=== PATIENT | female | born 1995 | race Caucasian/White ===

== ENCOUNTER 2019-03-20 02:54 | Inpatient (IN) ==
[2019-03-20] MEDS ORDERED: OXYTOCIN 30 UNITS/500 ML BAG IV PRN ×2 (08:17→11:02)
--- NOTE | 2019-03-20 08:28 | History & Physical Report ---
Date of Service March 20, 2019 Assessment & Plan (1) Normal labor: IUP at 40+ weeks with regular contractions & intact membranes BP's elevated today, but no PIH symptoms will check PIH labs see admission orders anticipate vaginal History of Present Illness Primary Care Provider: Devang Peña Patient is a 23 yo white female EDC 03/16/19 who presents with regular contractions since yesterday. She has now made cervical change. GBS negative. has been uncomplicated. Allergies Allergy/AdvReac Type Severity Reaction Status Date / Time nickel Allergy Mild Rash Verified 03/20/19 03:16 Home Medications Home Medications Medication Instructions Recorded Confirmed Type 1 tab PO DAILY 01/24/19 03/20/19 History vitamin,calcium,dlusefbf-zkyr-petcj acid tablet psyllium 1 tab PO DAILY 01/24/19 03/20/19 History Patient History Social History Preferred Language: Citizen Of [place] [employer] Required: No Beliefs That Will Affect Care: None marital status: Single Current Living Situation: Significant Other Other Information That Helps Us Care for You: No Feels Safe at Home: Yes Safety Concerns: Feels Safe At This Time Smoking Status: Former smoker Hx Alcohol Use: No Hx Substance Use: No Review of Systems All systems reviewed & are unremarkable except as noted in HPI & below Physical Exam Constitutional: WD/WN, vitals as above Respiratory: normal respiratory effort, lungs clear to auscultation Cardiovascular: RRR, no murmur, no edema Gastrointestinal (Abdomen): normal bowel sounds, soft, nontender, no hepatosplenomegaly Psychiatric: A+Ox3, euthymic affect Genitourinary: OB Exam Abdomen: + vertex Manual OB Exam: + cervical dilation 4 cm, + cervical effacement 100%, + station -2 and + amniotic fluid (intact) OB Exam Monitor Tracing: + external FHT monitor used, + external uterine monitor used, + category I and + normal FHT variability Results & Data Vital Signs (Past 12 Hours) Vital Signs Temp Pulse Resp BP 03/20/19 07:13 90 146/84 H 03/20/19 07:04 98.4 F 96 H 20 140/91 03/20/19 05:32 99.1 F 86 139/78 03/20/19 03:40 93 H 147/82 H 03/20/19 03:29 86 145/78 H 03/20/19 03:17 98.1 F 18 03/20/19 03:11 93 H 139/86 Code Status & VTE Plan VTE Prophylaxis Plan VTE Prophylaxis will be ordered: No
[2019-03-20] MEDS: LACTATED RINGER'S 1,000 ML IV PRN ×4 (08:47→21:26)
[2019-03-20 08:56] LABS: Hematocrit (blood only) 37.1 % (37-47); Hemoglobin 12.3 g/dL (12.0-16.0); Mean Corpuscular Hemoglobin 28.3 pg (25-34); Mean Corpuscular Hgb Conc 33.2 g/dL (32-36); Mean Corpuscular Volume 85.3 fL (80-100); Mean Platelet Volume 10.9 fL (7.4-10.4); Platelet Count 298 K/uL (130-400); RDW Coefficient of Variation 15.4 % (11.5-14.5); Red Blood Count 4.35 M/uL (4.2-5.4); White Blood Count 16.47 K/uL (4.8-10.8)
[2019-03-20 09:21] LABS: Alanine Aminotransferase 34 U/L (12-78); Albumin Level 2.8 gm/dl (3.4-5.0); Aspartate Aminotransferase 25 U/L (15-37); BUN Creatinine Ratio 11.9 (10-20); Bilirubin Direct < 0.1 mg/dl (0-0.2); Blood Urea Nitrogen 8 mg/dl (7-18); Calcium 9.2 mg/dl (8.5-10.1); Carbon Dioxide 22 mmol/L (21-32); Chloride 104 mmol/L (98-107); Creatinine Clr Calc Pharmacy 189.6 ml/min; Creatinine Clr Calc Pharmacy 192.6 ml/min; Est GFR (African American) 145.8; Est GFR (African American) 146.5; Est GFR (Non-African American) 125.8; Est GFR (Non-African American) 126.4; Glucose 86 mg/dl (70-99); Potassium 3.8 mmol/L (3.5-5.1); Sodium 136 mmol/L (136-145)
[2019-03-20 09:22] LABS: Albumin Globulin Ratio 0.7 (0.9-2); Alkaline Phosphatase 250 U/L (45-117); Bilirubin,Total 0.4 mg/dl (0.2-1); Globulin 4.2 gm/dl (2.5-4.0)
--- NOTE | 2019-03-20 11:06 | Obstetrical Progress Note ---
Date of Service March 20, 2019 Subjective Preeclampsia labs normal. Patient comfortable. Irreg ctx. SVE 4/80/-2. FHT Cat 1, [place] irreg Will start pitocin. Patient agreeable. OK for epidural when she desires. Results & Data Vital Signs (Past 12 Hours) Vital Signs Temp Pulse Resp BP 03/20/19 10:53 94 H 144/97 H 03/20/19 10:52 37.1 C 20 03/20/19 07:13 90 146/84 H 03/20/19 07:04 36.9 C 96 H 20 140/91 03/20/19 05:32 37.3 C 86 139/78 03/20/19 03:40 93 H 147/82 H 03/20/19 03:29 86 145/78 H 03/20/19 03:17 36.7 C 18 03/20/19 03:11 93 H 139/86 PG Care Time/CCT Total # of Minutes Spent Total Time Spent with Patient: Total time spent is greater than 50% in coordination of care (as documented) at patient's floor/unit and/or counseling patient:
[2019-03-20] MEDS ORDERED: BUPIVACAINE 0.25% 30 ML VIAL ONE ×2 (12:45→17:04)
[2019-03-20] MEDS ORDERED: ePHEDrine sulfate 50 MG/ML AMP ONE (12:45)
[2019-03-20] MEDS ORDERED: fentaNYL 2MCG/ML ROPIV 1.25MG/ML 100 ML BAG EPI ONE (12:46)
[2019-03-20] MEDS ORDERED: fentaNYL citrate 100 MCG/2 ML VIAL ONE ×2 (12:46→17:04)
--- NOTE | 2019-03-20 13:05 | Anesthesiology Consultation ---
Date of Service March 20, 2019 Assessment & Plan Chart Review Chart Review: Patient NOT seen in Pre Admission Testing and Acceptable Risk for Labor Epidural Consults Requested none ASA ASA2 Proposed Anesthesia Anesthesia Type: Labor Epidural and CSE Risk / Benefits Reviewed With: PT / POA / Parent / Guardian, Accepts Plan and Informed Consent Obtained History Height/Weight Height: 5 ft 6 in Weight: 130.635 kg Allergies Allergy/AdvReac Type Severity Reaction Status Date / Time nickel Allergy Mild Rash Verified 03/20/19 03:16 Medications Home Medications Medication Instructions Recorded Confirmed Last Taken 1 tab PO DAILY 01/24/19 03/20/19 03/20/19 vitamin,calcium,oolkxrgw-txad-lxiqh acid tablet psyllium 1 tab PO DAILY 01/24/19 03/20/19 03/20/19 Active Medications Generic Name Dose Route Start Last Admin Trade Name Freq PRN Reason Stop Dose Admin Lactated Ringer's 1,000 mls @ 125 mls/hr 03/20/19 08:17 03/20/19 13:01 Lr IV 03/22/19 08:16 125 mls/hr .Q8H PRN Infusion L&D Protocol Protocol Oxytocin 30 units in 500 mls @ 5 mls/hr 03/20/19 11:02 03/20/19 12:33 Pitocin IV 03/22/19 11:01 0.3 units/hr .Q24H PRN 5 mls/hr Labor Induction/Augmentation Titration Protocol 0.3 UNITS/HR NPO Date Last Intake of Fluids: 03/20/19 Time Last Intake of Fluids: 12:00 Date Last Intake of Solids: 03/19/19 Time Last Intake of Solids: 20:00 Past Medical History Medical History H/O urinary tract infection Exercise / Class Metabolic Activity II 4-5 Yardwork/Stairs/Walk up hill Past Family History Family History Grandmother (Maternal) Hypertension Other Breast cancer Past Surgical History Surgical History H/O oral surgery Status post cholecystectomy Past Anesthesia History No Hx of Anesthesia Complications and No Family Hx of Anesthesia Complications History of PONV No Hx of PONV and No Hx of Motion Sickness Social History Smoking Status: Former smoker Hx Alcohol Use: No Hx Substance Use: No substance use type: does not use Review of Systems no chest pain or sob Physical Exam Vital Signs Last Vital Signs Temp 37.0 C 03/20/19 12:54 Pulse 92 H 03/20/19 13:03 Resp 20 03/20/19 12:54 BP 145/72 H 03/20/19 12:53 Pulse Ox 98 03/20/19 13:03 ENMT Mouth: no TMJ abnormality Thyromental Distance: > or= 3.5 Finger Breadths Mallampati Class: II Neck normal visual inspection Respiratory normal respiratory effort Auscultation: lungs clear to auscultation bilaterally Cardiovascular Rate/Rhythm: regular rate and regular rhythm Musculoskeletal Spine: normal cervical ROM Neurologic moves all extremities Psychiatric Orientation: alert and oriented x 3 Testing Laboratory Results 03/20/19 08:34 03/20/19 08:34
[2019-03-20] MEDS ORDERED: ePHEDrine sulfate 50 MG/ML AMP IV PRN (13:25)
[2019-03-20] MEDS ORDERED: NALOXONE HCL 1 MG in SODIUM CHLORIDE 0.9% 1000ML 1,000 ML IV PRN (13:25)
[2019-03-20] MEDS ORDERED: DiphenhydrAMINE HCL 50 MG/ML VIAL IV PRN (13:25)
[2019-03-20] MEDS ORDERED: NALBUPHINE HCL INJ 10 MG/ML AMP IV PRN (13:25)
[2019-03-20] MEDS ORDERED: NALOXONE HCL 0.4 MG/1 ML VIAL/CARP IV PRN (13:25)
[2019-03-20] MEDS ORDERED: ONDANSETRON INJ 2 MG/ML 2 ML VIAL IV PRN (13:25)
[2019-03-20] MEDS: fentaNYL 2MCG/ML ROPIV 1.25MG/ML 100 ML BAG EPI PRN ×3 (17:01→19:20)
--- NOTE | 2019-03-20 20:12 | Obstetrical Progress Note ---
Date of Service March 20, 2019 Subjective Comfortable with epidural. SVE 7/100/0. FHT Cat 1 [place] Q 2 Results & Data Vital Signs (Past 12 Hours) Vital Signs Temp Pulse Resp BP Pulse Ox 03/20/19 20:08 91 H 99 03/20/19 20:07 83 141/77 H 03/20/19 20:03 93 H 99 03/20/19 19:58 91 H 99 03/20/19 19:53 92 H 99 03/20/19 19:52 95 H 143/77 H 03/20/19 19:48 86 98 03/20/19 19:43 89 99 03/20/19 19:38 89 99 03/20/19 19:37 93 H 132/74 03/20/19 19:33 94 H 99 03/20/19 19:30 20 03/20/19 19:28 86 99 03/20/19 19:23 91 H 140/75 99 03/20/19 19:18 97 H 100 03/20/19 19:15 37.5 C 03/20/19 19:13 106 H 100 03/20/19 19:08 92 H 143/77 H 99 03/20/19 19:03 94 H 99 03/20/19 19:00 20 03/20/19 18:58 89 99 03/20/19 18:53 102 H 99 03/20/19 18:52 95 H 145/75 H 03/20/19 18:48 83 99 03/20/19 18:43 84 99 03/20/19 18:38 89 99 03/20/19 18:37 91 H 142/82 H 03/20/19 18:33 92 H 99 03/20/19 18:28 92 H 99 03/20/19 18:23 101 H 99 03/20/19 18:22 103 H 133/83 03/20/19 18:18 104 H 100 03/20/19 18:16 106 H 91 03/20/19 18:15 37.0 C 03/20/19 18:13 99 H 99 03/20/19 18:08 98 H 99 03/20/19 18:07 98 H 130/71 03/20/19 18:03 90 99 03/20/19 18:00 20 03/20/19 17:58 97 H 99 03/20/19 17:53 92 H 128/68 99 03/20/19 17:48 96 H 100 03/20/19 17:43 110 H 100 03/20/19 17:40 90 153/85 H 03/20/19 17:38 99 H 100 03/20/19 17:37 97 H 160/95 H 03/20/19 17:33 95 H 100 03/20/19 17:30 20 03/20/19 17:28 93 H 100 03/20/19 17:25 37.7 C H 03/20/19 17:23 95 H 99 03/20/19 17:22 96 H 156/82 H 03/20/19 17:21 92 H 165/86 H 03/20/19 17:18 88 99 03/20/19 17:13 97 H 99 03/20/19 17:08 88 98 03/20/19 17:07 94 H 165/85 H 03/20/19 17:03 96 H 99 03/20/19 17:00 37.3 C 20 03/20/19 16:58 90 161/88 H 99 03/20/19 16:53 96 H 98 03/20/19 16:52 90 167/90 H 03/20/19 16:48 92 H 98 03/20/19 16:46 20 03/20/19 16:43 93 H 98 03/20/19 16:38 89 145/76 H 100 03/20/19 16:33 89 99 03/20/19 16:30 18 03/20/19 16:28 86 100 03/20/19 16:23 92 H 100 03/20/19 16:22 86 132/78 03/20/19 16:18 89 99 03/20/19 16:13 87 100 03/20/19 16:08 96 H 99 03/20/19 16:07 78 138/83 03/20/19 16:03 93 H 100 03/20/19 16:00 20 03/20/19 15:58 92 H 99 03/20/19 15:53 88 100 03/20/19 15:52 85 138/83 03/20/19 15:48 94 H 100 03/20/19 15:43 91 H 100 03/20/19 15:38 86 100 03/20/19 15:37 90 137/77 03/20/19 15:33 90 100 09/23/19 15:30 20 03/20/19 15:28 91 H 99 03/20/19 15:23 85 99 03/20/19 15:22 80 121/68 03/20/19 15:18 86 99 03/20/19 15:13 83 99 03/20/19 15:08 85 99 03/20/19 15:07 77 118/63 03/20/19 15:03 78 100 03/20/19 15:00 36.9 C 20 03/20/19 14:58 89 100 03/20/19 14:57 93 H 145/76 H 03/20/19 14:53 76 99 03/20/19 14:48 85 98 03/20/19 14:43 84 98 03/20/19 14:38 78 99 03/20/19 14:37 71 142/77 H 03/20/19 14:33 70 98 03/20/19 14:28 87 98 03/20/19 14:23 71 128/68 99 03/20/19 14:18 72 98 03/20/19 14:13 69 98 03/20/19 14:08 72 133/74 99 03/20/19 14:03 71 98 03/20/19 13:58 77 97 03/20/19 13:53 74 133/77 97 03/20/19 13:48 85 97 03/20/19 13:43 73 97 03/20/19 13:38 75 97 03/20/19 13:36 76 136/74 03/20/19 13:33 77 135/79 97 03/20/19 13:31 76 131/66 03/20/19 13:28 84 99 03/20/19 13:27 81 136/73 03/20/19 13:24 86 133/72 03/20/19 13:23 92 H 98 03/20/19 13:22 77 131/62 03/20/19 13:18 85 98 03/20/19 13:15 90 123/71 03/20/19 13:14 84 86 L 03/20/19 13:13 86 99 03/20/19 13:08 100 H 100 03/20/19 13:03 92 H 98 03/20/19 12:58 89 100 03/20/19 12:54 37.0 C 20 03/20/19 12:53 80 145/72 H 98 03/20/19 12:44 80 139/76 03/20/19 12:34 85 171/96 H 03/20/19 11:20 79 144/88 H 03/20/19 10:53 94 H 144/97 H 03/20/19 10:52 37.1 C 20 PG Care Time/CCT Total # of Minutes Spent Total Time Spent with Patient: Total time spent is greater than 50% in coordination of care (as documented) at patient's floor/unit and/or counseling patient:
[2019-03-20] MEDS ORDERED: LABETALOL HCL IV 5 MG/ML 20ML IV STA (22:02)
--- NOTE | 2019-03-21 00:28 | Obstetrical Progress Note ---
Date of Service March 21, 2019 Subjective Comfortable with epidural. FHT cat 1, early decels [place] Q 2 SVE 8/100/+1 Results & Data Vital Signs (Past 12 Hours) Vital Signs Temp Pulse Resp BP Pulse Ox 03/21/19 00:23 106 H 96 03/21/19 00:18 108 H 96 03/21/19 00:16 109 H 146/89 H 03/21/19 00:13 109 H 97 03/21/19 00:08 108 H 97 03/21/19 00:03 114 H 98 03/21/19 00:01 111 H 138/91 03/20/19 23:58 110 H 99 03/20/19 23:55 106 H 139/80 03/20/19 23:53 113 H 97 03/20/19 23:50 112 H 146/90 H 03/20/19 23:48 111 H 96 03/20/19 23:46 117 H 139/85 03/20/19 23:43 109 H 96 03/20/19 23:40 108 H 143/82 H 03/20/19 23:38 108 H 96 03/20/19 23:36 108 H 139/81 03/20/19 23:33 108 H 96 03/20/19 23:30 108 H 145/84 H 03/20/19 23:28 110 H 96 03/20/19 23:25 107 H 142/84 H 03/20/19 23:23 108 H 96 03/20/19 23:21 109 H 140/86 03/20/19 23:18 108 H 96 03/20/19 23:16 106 H 141/87 H 03/20/19 23:13 106 H 97 03/20/19 23:11 106 H 147/88 H 03/20/19 23:08 107 H 97 03/20/19 23:06 107 H 160/89 H 03/20/19 23:03 104 H 97 03/20/19 23:01 105 H 157/86 H 03/20/19 23:00 37.5 C 18 03/20/19 22:58 107 H 97 03/20/19 22:55 109 H 159/85 H 03/20/19 22:53 105 H 97 03/20/19 22:50 108 H 159/90 H 03/20/19 22:48 108 H 97 03/20/19 22:46 104 H 162/86 H 03/20/19 22:43 108 H 97 03/20/19 22:41 107 H 148/87 H 03/20/19 22:38 110 H 97 03/20/19 22:36 110 H 135/73 03/20/19 22:33 108 H 151/89 H 97 03/20/19 22:30 20 03/20/19 22:28 99 H 146/86 H 97 03/20/19 22:23 105 H 97 03/20/19 22:21 108 H 156/96 H 03/20/19 22:18 106 H 98 03/20/19 22:13 110 H 98 03/20/19 22:08 107 H 99 03/20/19 22:07 107 H 153/96 H 03/20/19 22:03 108 H 100 03/20/19 22:00 18 03/20/19 21:58 114 H 99 03/20/19 21:53 104 H 99 03/20/19 21:52 107 H 163/99 H 03/20/19 21:48 103 H 100 03/20/19 21:43 108 H 100 03/20/19 21:38 110 H 100 03/20/19 21:37 100 H 145/93 H 03/20/19 21:33 113 H 100 03/20/19 21:30 20 03/20/19 21:28 111 H 100 03/20/19 21:23 99 H 100 03/20/19 21:22 107 H 157/97 H 03/20/19 21:18 106 H 100 03/20/19 21:13 114 H 159/94 H 98 03/20/19 21:08 96 H 99 03/20/19 21:07 100 H 165/95 H 03/20/19 21:03 98 H 99 03/20/19 21:00 18 03/20/19 20:58 95 H 99 03/20/19 20:53 100 H 99 03/20/19 20:52 98 H 147/92 H 03/20/19 20:48 97 H 100 03/20/19 20:43 101 H 100 03/20/19 20:38 95 H 100 03/20/19 20:37 101 H 141/91 H 03/20/19 20:33 98 H 100 03/20/19 20:30 18 03/20/19 20:28 98 H 100 03/20/19 20:23 98 H 100 03/20/19 20:22 109 H 146/88 H 03/20/19 20:18 100 H 100 03/20/19 20:15 37.4 C 20 03/20/19 20:13 113 H 100 03/20/19 20:12 93 H 84 L 03/20/19 20:08 91 H 99 03/20/19 20:07 83 141/77 H 03/20/19 20:03 93 H 99 03/20/19 20:00 20 03/20/19 19:58 91 H 99 03/20/19 19:53 92 H 99 03/20/19 19:52 95 H 143/77 H 03/20/19 19:48 86 98 03/20/19 19:43 89 99 03/20/19 19:38 89 99 03/20/19 19:37 93 H 132/74 03/20/19 19:33 94 H 99 03/20/19 19:30 20 03/20/19 19:28 86 99 03/20/19 19:23 91 H 140/75 99 03/20/19 19:18 97 H 100 03/20/19 19:15 37.5 C 03/20/19 19:13 106 H 100 03/20/19 19:08 92 H 143/77 H 99 03/20/19 19:03 94 H 99 03/20/19 19:00 20 03/20/19 18:58 89 99 03/20/19 18:53 102 H 99 03/20/19 18:52 95 H 145/75 H 03/20/19 18:48 83 99 03/20/19 18:43 84 99 03/20/19 18:38 89 99 03/20/19 18:37 91 H 142/82 H 03/20/19 18:33 92 H 99 03/20/19 18:28 92 H 99 03/20/19 18:23 101 H 99 03/20/19 18:22 103 H 133/83 03/20/19 18:18 104 H 100 03/20/19 18:16 106 H 91 03/20/19 18:15 37.0 C 03/20/19 18:13 99 H 99 03/20/19 18:08 98 H 99 03/20/19 18:07 98 H 130/71 03/20/19 18:03 90 99 03/20/19 18:00 20 03/20/19 17:58 97 H 99 03/20/19 17:53 92 H 128/68 99 03/20/19 17:48 96 H 100 03/20/19 17:43 110 H 100 03/20/19 17:40 90 153/85 H 03/20/19 17:38 99 H 100 03/20/19 17:37 97 H 160/95 H 03/20/19 17:33 95 H 100 03/20/19 17:30 20 03/20/19 17:28 93 H 100 03/20/19 17:25 37.7 C H 03/20/19 17:23 95 H 99 03/20/19 17:22 96 H 156/82 H 03/20/19 17:21 92 H 165/86 H 03/20/19 17:18 88 99 03/20/19 17:13 97 H 99 03/20/19 17:08 88 98 03/20/19 17:07 94 H 165/85 H 03/20/19 17:03 96 H 99 03/20/19 17:00 37.3 C 20 03/20/19 16:58 90 161/88 H 99 03/20/19 16:53 96 H 98 03/20/19 16:52 90 167/90 H 03/20/19 16:48 92 H 98 03/20/19 16:46 20 03/20/19 16:43 93 H 98 03/20/19 16:38 89 145/76 H 100 03/20/19 16:33 89 99 03/20/19 16:30 18 03/20/19 16:28 86 100 03/20/19 16:23 92 H 100 03/20/19 16:22 86 132/78 03/20/19 16:18 89 99 03/20/19 16:13 87 100 03/20/19 16:08 96 H 99 03/20/19 16:07 78 138/83 03/20/19 16:03 93 H 100 03/20/19 16:00 20 03/20/19 15:58 92 H 99 03/20/19 15:53 88 100 03/20/19 15:52 85 138/83 03/20/19 15:48 94 H 100 03/20/19 15:43 91 H 100 03/20/19 15:38 86 100 03/20/19 15:37 90 137/77 03/20/19 15:33 90 100 03/20/19 15:30 20 03/20/19 15:28 91 H 99 03/20/19 15:23 85 99 03/20/19 15:22 80 121/68 03/20/19 15:18 86 99 03/20/19 15:13 83 99 03/20/19 15:08 85 99 03/20/19 15:07 77 118/63 03/20/19 15:03 78 100 03/20/19 15:00 36.9 C 20 03/20/19 14:58 89 100 03/20/19 14:57 93 H 145/76 H 03/20/19 14:53 76 99 03/20/19 14:48 85 98 03/20/19 14:43 84 98 03/20/19 14:38 78 99 03/20/19 14:37 71 142/77 H 03/20/19 14:33 70 98 03/20/19 14:28 87 98 03/20/19 14:23 71 128/68 99 03/20/19 14:18 72 98 03/20/19 14:13 69 98 03/20/19 14:08 72 133/74 99 03/20/19 14:03 71 98 03/20/19 13:58 77 97 03/20/19 13:53 74 133/77 97 03/20/19 13:48 85 97 03/20/19 13:43 73 97 03/20/19 13:38 75 97 03/20/19 13:36 76 136/74 03/20/19 13:33 77 135/79 97 03/20/19 13:31 76 131/66 03/20/19 13:28 84 99 03/20/19 13:27 81 136/73 03/20/19 13:24 86 133/72 03/20/19 13:23 92 H 98 03/20/19 13:22 77 131/62 03/20/19 13:18 85 98 03/20/19 13:15 90 123/71 03/20/19 13:14 84 86 L 03/20/19 13:13 86 99 03/20/19 13:08 100 H 100 03/20/19 13:03 92 H 98 03/20/19 12:58 89 100 03/20/19 12:54 37.0 C 20 03/20/19 12:53 80 145/72 H 98 03/20/19 12:44 80 139/76 03/20/19 12:34 85 171/96 H PG Care Time/CCT Total # of Minutes Spent Total Time Spent with Patient: Total time spent is greater than 50% in coordination of care (as documented) at patient's floor/unit and/or counseling patient:
[2019-03-21] MEDS: fentaNYL 2MCG/ML ROPIV 1.25MG/ML 100 ML BAG EPI PRN (01:02)
--- NOTE | 2019-03-21 01:59 | Obstetrical Progress Note ---
Date of Service March 21, 2019 Subjective Comfortable. FHT Cat 1 with early decels [employer] Q 2 SVE 10/100/+2 to +3 (caput, but skull is 2+) Will begin to push. Results & Data Vital Signs (Past 12 Hours) Vital Signs Temp Pulse Resp BP Pulse Ox 03/21/19 01:53 108 H 18 98 03/21/19 01:48 95 H 97 03/21/19 01:47 98 H 128/66 03/21/19 01:43 95 H 97 03/21/19 01:38 96 H 97 03/21/19 01:33 96 H 97 03/21/19 01:31 98 H 124/68 03/21/19 01:28 98 H 97 03/21/19 01:23 96 H 96 03/21/19 01:18 99 H 97 03/21/19 01:16 100 H 128/73 03/21/19 01:13 98 H 97 03/21/19 01:08 105 H 98 03/21/19 01:03 115 H 97 03/21/19 01:01 114 H 139/87 03/21/19 00:59 37.5 C 18 03/21/19 00:58 109 H 97 03/21/19 00:53 112 H 97 03/21/19 00:51 109 H 138/91 03/21/19 00:48 109 H 97 03/21/19 00:43 109 H 97 03/21/19 00:38 109 H 96 03/21/19 00:33 113 H 98 03/21/19 00:31 112 H 141/87 H 03/21/19 00:30 18 03/21/19 00:28 107 H 97 03/21/19 00:23 106 H 96 03/21/19 00:18 108 H 96 03/21/19 00:16 109 H 146/89 H 03/21/19 00:13 109 H 97 03/21/19 00:08 108 H 97 03/21/19 00:03 114 H 98 03/21/19 00:01 111 H 18 138/91 03/20/19 23:58 110 H 99 03/20/19 23:55 106 H 139/80 03/20/19 23:53 113 H 97 03/20/19 23:50 112 H 146/90 H 03/20/19 23:48 111 H 96 03/20/19 23:46 117 H 139/85 03/20/19 23:43 109 H 96 03/20/19 23:40 108 H 143/82 H 03/20/19 23:38 108 H 96 03/20/19 23:36 108 H 139/81 03/20/19 23:33 108 H 96 03/20/19 23:30 108 H 145/84 H 03/20/19 23:28 110 H 96 03/20/19 23:25 107 H 142/84 H 03/20/19 23:23 108 H 96 03/20/19 23:21 109 H 140/86 03/20/19 23:18 108 H 96 03/20/19 23:16 106 H 141/87 H 03/20/19 23:13 106 H 97 03/20/19 23:11 106 H 147/88 H 03/20/19 23:08 107 H 97 03/20/19 23:06 107 H 160/89 H 03/20/19 23:03 104 H 97 03/20/19 23:01 105 H 157/86 H 03/20/19 23:00 37.5 C 18 03/20/19 22:58 107 H 97 03/20/19 22:55 109 H 159/85 H 03/20/19 22:53 105 H 97 03/20/19 22:50 108 H 159/90 H 03/20/19 22:48 108 H 97 03/20/19 22:46 104 H 162/86 H 03/20/19 22:43 108 H 97 03/20/19 22:41 107 H 148/87 H 03/20/19 22:38 110 H 97 03/20/19 22:36 110 H 135/73 03/20/19 22:33 108 H 151/89 H 97 03/20/19 22:30 20 03/20/19 22:28 99 H 146/86 H 97 03/20/19 22:23 105 H 97 03/20/19 22:21 108 H 156/96 H 03/20/19 22:18 106 H 98 03/20/19 22:13 110 H 98 03/20/19 22:08 107 H 99 03/20/19 22:07 107 H 153/96 H 03/20/19 22:03 108 H 100 03/20/19 22:00 18 03/20/19 21:58 114 H 99 03/20/19 21:53 104 H 99 03/20/19 21:52 107 H 163/99 H 03/20/19 21:48 103 H 100 03/20/19 21:43 108 H 100 03/20/19 21:38 110 H 100 03/20/19 21:37 100 H 145/93 H 03/20/19 21:33 113 H 100 03/20/19 21:30 20 03/20/19 21:28 111 H 100 03/20/19 21:23 99 H 100 03/20/19 21:22 107 H 157/97 H 03/20/19 21:18 106 H 100 03/20/19 21:13 114 H 159/94 H 98 03/20/19 21:08 96 H 99 03/20/19 21:07 100 H 165/95 H 03/20/19 21:03 98 H 99 03/20/19 21:00 18 03/20/19 20:58 95 H 99 03/20/19 20:53 100 H 99 03/20/19 20:52 98 H 147/92 H 03/20/19 20:48 97 H 100 03/20/19 20:43 101 H 100 03/20/19 20:38 95 H 100 03/20/19 20:37 101 H 141/91 H 03/20/19 20:33 98 H 100 03/20/19 20:30 18 03/20/19 20:28 98 H 100 03/20/19 20:23 98 H 100 03/20/19 20:22 109 H 146/88 H 03/20/19 20:18 100 H 100 03/20/19 20:15 37.4 C 20 03/20/19 20:13 113 H 100 03/20/19 20:12 93 H 84 L 03/20/19 20:08 91 H 99 03/20/19 20:07 83 141/77 H 03/20/19 20:03 93 H 99 03/20/19 20:00 20 03/20/19 19:58 91 H 99 03/20/19 19:53 92 H 99 03/20/19 19:52 95 H 143/77 H 03/20/19 19:48 86 98 03/20/19 19:43 89 99 03/20/19 19:38 89 99 03/20/19 19:37 93 H 132/74 03/20/19 19:33 94 H 99 03/20/19 19:30 20 03/20/19 19:28 86 99 03/20/19 19:23 91 H 140/75 99 03/20/19 19:18 97 H 100 03/20/19 19:15 37.5 C 03/20/19 19:13 106 H 100 03/20/19 19:08 92 H 143/77 H 99 03/20/19 19:03 94 H 99 03/20/19 19:00 20 03/20/19 18:58 89 99 03/20/19 18:53 102 H 99 03/20/19 18:52 95 H 145/75 H 03/20/19 18:48 83 99 03/20/19 18:43 84 99 03/20/19 18:38 89 99 03/20/19 18:37 91 H 142/82 H 03/20/19 18:33 92 H 99 03/20/19 18:28 92 H 99 03/20/19 18:23 101 H 99 03/20/19 18:22 103 H 133/83 03/20/19 18:18 104 H 100 03/20/19 18:16 106 H 91 03/20/19 18:15 37.0 C 03/20/19 18:13 99 H 99 03/20/19 18:08 98 H 99 03/20/19 18:07 98 H 130/71 03/20/19 18:03 90 99 03/20/19 18:00 20 03/20/19 17:58 97 H 99 03/20/19 17:53 92 H 128/68 99 03/20/19 17:48 96 H 100 03/20/19 17:43 110 H 100 03/20/19 17:40 90 153/85 H 03/20/19 17:38 99 H 100 03/20/19 17:37 97 H 160/95 H 03/20/19 17:33 95 H 100 03/20/19 17:30 20 03/20/19 17:28 93 H 100 03/20/19 17:25 37.7 C H 03/20/19 17:23 95 H 99 03/20/19 17:22 96 H 156/82 H 03/20/19 17:21 92 H 165/86 H 03/20/19 17:18 88 99 03/20/19 17:13 97 H 99 03/20/19 17:08 88 98 03/20/19 17:07 94 H 165/85 H 03/20/19 17:03 96 H 99 03/20/19 17:00 37.3 C 20 03/20/19 16:58 90 161/88 H 99 03/20/19 16:53 96 H 98 03/20/19 16:52 90 167/90 H 03/20/19 16:48 92 H 98 03/20/19 16:46 20 03/20/19 16:43 93 H 98 03/20/19 16:38 89 145/76 H 100 03/20/19 16:33 89 99 03/20/19 16:30 18 03/20/19 16:28 86 100 03/20/19 16:23 92 H 100 03/20/19 16:22 86 132/78 03/20/19 16:18 89 99 03/20/19 16:13 87 100 03/20/19 16:08 96 H 99 03/20/19 16:07 78 138/83 03/20/19 16:03 93 H 100 03/20/19 16:00 20 03/20/19 15:58 92 H 99 03/20/19 15:53 88 100 03/20/19 15:52 85 138/83 03/20/19 15:48 94 H 100 03/20/19 15:43 91 H 100 03/20/19 15:38 86 100 03/20/19 15:37 90 137/77 03/20/19 15:33 90 100 03/20/19 15:30 20 03/20/19 15:28 91 H 99 03/20/19 15:23 85 99 03/20/19 15:22 80 121/68 03/20/19 15:18 86 99 03/20/19 15:13 83 99 03/20/19 15:08 85 99 03/20/19 15:07 77 118/63 03/20/19 15:03 78 100 03/20/19 15:00 36.9 C 20 03/20/19 14:58 89 100 03/20/19 14:57 93 H 145/76 H 03/20/19 14:53 76 99 03/20/19 14:48 85 98 03/20/19 14:43 84 98 03/20/19 14:38 78 99 03/20/19 14:37 71 142/77 H 03/20/19 14:33 70 98 03/20/19 14:28 87 98 03/20/19 14:23 71 128/68 99 03/20/19 14:18 72 98 03/20/19 14:13 69 98 03/20/19 14:08 72 133/74 99 03/20/19 14:03 71 98 03/20/19 13:58 77 97 PG Care Time/CCT Total # of Minutes Spent Total Time Spent with Patient: Total time spent is greater than 50% in coordination of care (as documented) at patient's floor/unit and/or counseling patient:
--- NOTE | 2019-03-21 03:05 | Delivery Summary ---
Vaginal Delivery Summary Date of Service March 21, 2019 Vaginal Delivery Summary Vaginal Delivery Summary: Pre-delivery diagnoses: 23yo @ 40 5/7, spontaneous labor, obesity Post-delivery diagnoses: same Procedure: spontaneous vaginal delivery, repair of 2nd degree perineal laceration Surgeon: Lizzette Santacruz DO Complications: none Findings: Viable male . Apgars: 8/9. Weight pending, please see nursery records Estimated blood loss: 300ml Description of delivery: The patient progressed to complete with epidural anesthesia. She then began to push. She spontaneously vaginally delivered a viable from the cephalic presentation. The head delivered in FRANCISCO J position. The anterior shoulder delivered, followed by the posterior shoulder, followed by the body. The baby was placed on mother's abdomen and a spontaneous cry was heard. The cord was doubly clamped and cut. Cord blood was obtained. The placenta was delivered spontaneously intact with a 3-vessel cord. The uterus and vagina were swept of clots and debris. IV pitocin was given. The uterus became firm. The cervix, vagina, and perineum were inspected and a 2nd degree lacerations was noted and repaired in standard fashion with 3-0 vicryl. Additional [id number] sutures were used to obtain hemostasis. The rectum was evaluated, no sutures in the rectum. Excellent hemostasis was observed. The mother and baby are recovering in stable and good condition in the room. Sponge, needle and instrument counts were correct x 2. Lizzette Santacrzu DO [facility] [place]
--- NOTE | 2019-03-21 03:29 | Anesthesia Procedure Note ---
Date of Service March 21, 2019 Anesthesia Post Epidural Note Vital Signs Vital Signs: Temp Pulse Resp BP Pulse Ox 37.1 C 96 H 18 143/87 H 97 03/21/19 02:46 03/21/19 03:22 03/21/19 03:16 03/21/19 03:22 03/21/19 02:48 Pain Intensity Abdomen: Pain Intensity: 0 Notes Mental Status: alert / awake / arousable and participated in evaluation Nausea / Vomiting: adequately controlled Pain: adequately controlled Airway Patency, RR, SpO2: stable & adequate BP & HR: stable & adequate Hydration State: stable & adequate Neuraxial Anesthesia: was administered and sensory block is resolving Anesthetic Complications: no major complications apparent and Pt Satisfied with anesthetic care Epidural: Removed without complications and With tip intact
[2019-03-21] MEDS ORDERED: HYDROCORTISONE ACETATE 25 MG SUPP PR PRN (06:14)
[2019-03-21] MEDS ORDERED: OXYCODONE/ACETAMINOPHEN 5mg/325mg TAB PO PRN (06:14)
[2019-03-21] MEDS ORDERED: bisacodyL 10 MG SUPP PR PRN (06:14)
[2019-03-21] MEDS ORDERED: SUPERCREAM 0.870% 15 GM JAR EXT PRN (06:14)
[2019-03-21] MEDS ORDERED: ACETAMINOPHEN 325 MG TAB PO PRN (06:14)
[2019-03-21] MEDS ORDERED: DIPHTHERIA/TETANUS/PERTUSSIS 0.5 ML SYR/VIAL IM ONE (06:14)
[2019-03-21] MEDS ORDERED: OXYTOCIN 30 UNITS/500 ML BAG IV PRN (06:14)
[2019-03-21] MEDS ORDERED: BENZOCAINE 20% AER SPR 82.5 GM CAN EXT PRN (06:14)
[2019-03-21] MEDS: PRENATAL VITAMIN 1 TAB PO SCH (08:52)
[2019-03-21] MEDS: DOCUSATE SODIUM 100 MG CAP PO SCH (08:52)
[2019-03-21] MEDS: IBUPROFEN 600 MG TAB PO PRN (10:10)
--- NOTE | 2019-03-22 06:16 | Obstetrical Progress Note ---
Date of Service <Lyn Mills DO - Last Filed: 03/22/19 06:54> March 22, 2019 Assessment & Plan <Lyn Mills DO - Last Filed: 03/22/19 06:54> (1) Encounter for care and examination after delivery: 23 yo F PPD #1 following vaginal delivery at 40w5d, doing well and without complaints this morning. - PPD #1 - Feels well, ambulating well, voiding well. - Will continue routine care. - Following d/c will have f/u in 6 weeks. - Blood type O+, Rubella immune. Day #:: 1 Subjective <Lyn Mills DO - Last Filed: 03/22/19 06:54> Genoveva is a 23 yo female ; PPD # 1 following spontaneous vaginal delivery at 40w5d; doing well this AM; no abdominal cramping/pain; voiding well, passing gas and +BM; tolerating meals overnight, able to ambulate some within the room. Some persistent spotting this morning but improved from yesterday. Review of Systems Constitutional: denies fever, chills, sweats, headache Respiratory: denies SOB, difficulty breathing Cardiac: denies CP, chest palpitations, chest pressure Breast: denies breast pain : denies dysuria Physical Exam <Lyn Mills DO - Last Filed: 03/22/19 06:54> General: patient is alert and oriented, in NAD Cardiac: +S1/S2, no murmurs rubs or gallops Respiratory: lungs CTA b/l, anteriorly and posteriorly, no wheezes rales or rhonchi, no increased work of breathing, symmetric chest rise, no respiratory distress Abdomen: soft, NT, +bowel sounds Uterus: uterine fundus firm, palpable 1cm below the umbilicus Lower Extremities: no LE edema or swelling, no deep calf pain, Jesenia's sign negative b/l Results & Data <Lyn Mills DO - Last Filed: 03/22/19 06:54> Vital Signs (Past 12 Hours) Vital Signs Temp Pulse Resp BP 03/21/19 19:40 36.6 C 89 20 129/86 Medications Administered Current Medications Acetaminophen (Tylenol) 650 mg PO Q6H PRN PRN Reason: Pain/HARVEY/Fever Stop: 04/20/19 06:13 Last Admin: 03/21/19 21:27 Dose: 650 mg Documented by: Benzocaine (Dermoplast Pain Relieving [place]) 1 appln EXT PRN PRN PRN Reason: Perineal Discomfort Stop: 04/20/19 06:13 Last Admin: 03/21/19 06:32 Dose: 1 appln Documented by: Bisacodyl (Dulcolax) 5 mg PO 2000 [facility] Stop: 03/22/19 20:01 Bisacodyl (Dulcolax) 10 mg [place] DAILY PRN PRN Reason: No BM on 2nd post- day Stop: 04/20/19 06:13 Cocaine HCl (Supercream 0.870%) 1 gm EXT BID PRN PRN Reason: Hemorrhoidal Inflammation Stop: 04/04/19 06:13 Docusate Sodium (Colace) 100 mg PO DAILY@08,21 [facility] Stop: 04/20/19 07:59 Last Admin: 03/21/19 08:52 Dose: 100 mg Documented by: Hydrocortisone (Anusol Hc) 25 mg [place] BID PRN PRN Reason: Hemorrhoidal Inflammation Stop: 04/20/19 06:13 Oxytocin (Pitocin) 30 units in 500 mls @ 333.333 mls/hr IV .Q1H30M PRN; Protocol PRN Reason: Bleeding Control Stop: 04/20/19 06:13 Ibuprofen (Motrin) 600 mg PO Q4H PRN PRN Reason: Pain/HARVEY/Cramping/Fever Stop: 04/20/19 06:13 Last Admin: 03/21/19 10:10 Dose: 600 mg Documented by: Oxycodone/Acetaminophen (Percocet 5mg/325mg) 1 tab PO Q4H PRN PRN Reason: Pain not relieved by... Stop: 04/04/19 06:13 Prenat Multivit/[place]/Iron/Folic Ac ( Vitamin) 1 tab PO DAILY@08 [facility] Stop: 04/20/19 07:59 Last Admin: 03/21/19 08:52 Dose: 1 tab Documented by: <Mervin Sanchez Jr, MD, FACOG - Last Filed: 03/22/19 08:13> Co-Signing Physician Notes Resident Physician Supervision Note: I was present with Dr. Vasquez during the history and exam. I discussed the case with the resident and agree with the findings and plan as documented in the note. Any exceptions or clarifications are listed here: Patient doing well, some issues, routine care. Documented By: Mervin Sanchez Jr, MD, FACOG Resident Activity Tracking <Lyn Mills, - Last Filed: 03/22/19 06:54> Resident Involvement: Resident Care Provided Care Provided: Adult Hospital Medicine
[2019-03-22 07:19] LABS: Hematocrit (blood only) 31.1 % (37-47); Hemoglobin 10.3 g/dL (12.0-16.0); Mean Corpuscular Hemoglobin 28.5 pg (25-34); Mean Corpuscular Hgb Conc 33.1 g/dL (32-36); Mean Corpuscular Volume 86.1 fL (80-100); Mean Platelet Volume 10.4 fL (7.4-10.4); Platelet Count 220 K/uL (130-400); RDW Coefficient of Variation 15.8 % (11.5-14.5); Red Blood Count 3.61 M/uL (4.2-5.4)
[2019-03-22] MEDS: DOCUSATE SODIUM 100 MG CAP PO SCH ×2 (08:20→20:07)
[2019-03-22] MEDS: PRENATAL VITAMIN 1 TAB PO SCH (08:20)
[2019-03-22] MEDS: IBUPROFEN 600 MG TAB PO PRN ×2 (12:09→20:09)
[2019-03-22] MEDS ORDERED: bisacodyL 5 MG TABEC PO SCH (20:00)
--- NOTE | 2019-03-23 06:28 | Obstetrical Progress Note ---
Date of Service <Lyn Mills DO - Last Filed: 03/23/19 06:50> March 23, 2019 Assessment & Plan <Lyn Mills DO - Last Filed: 03/23/19 06:50> (1) Encounter for care and examination after delivery: 23 yo F PPD #2 following vaginal delivery at 40w5d, doing well and without complaints this morning. - PPD #2 - Had counseling yesterday. Today reports feeling better about her baby's latch. - Feels well, ambulating well, voiding well. - For d/c today - Following d/c will have f/u in 6 weeks. - Blood type O+, Rubella immune. - Discussed discharge instructions with the patient and answered patient's questions. Subjective <Lyn Mills - Last Filed: 03/23/19 06:50> Genoveva is a 23 yo female ; PPD # 2 following vaginal delivery at 40w5d; doing well this AM; no abdominal cramping/pain; voiding well, passing gas and +BM; tolerating meals overnight, able to ambulate some within the room. Some persistent spotting this morning but improved from yesterday. Feels better about her baby latching today following some counseling yesterday on . Has supplemented some with formula. Review of Systems Constitutional: denies fever, chills, sweats, headache Respiratory: denies SOB, difficulty breathing Cardiac: denies CP, chest palpitations, chest pressure Breast: denies breast pain : denies dysuria Physical Exam <Lyn Mills - Last Filed: 03/23/19 06:50> General: patient is alert and oriented, in NAD Cardiac: +S1/S2, no murmurs rubs or gallops Respiratory: lungs CTA b/l, anteriorly and posteriorly, no wheezes rales or rhonchi, no increased work of breathing, symmetric chest rise, no respiratory distress Abdomen: soft, NT, +bowel sounds Uterus: uterine fundus firm, palpable 3cm below the umbilicus Lower Extremities: no LE edema or swelling, no deep calf pain, Jesenia's sign negative b/l Results & Data <Lyn Vasquezvonnie - Last Filed: 03/23/19 06:50> Vital Signs (Past 12 Hours) Vital Signs Temp Pulse Resp BP 03/23/19 00:00 36.7 C 64 20 107/72 03/22/19 20:10 36.7 C 73 20 130/84 Laboratory Results Laboratory Results - last 24 hr 03/22/19 06:39 WBC 16.00 H RBC 3.61 L Hgb 10.3 L Hct 31.1 L MCV 86.1 MCH 28.5 MCHC 33.1 RDW Std Deviation 50.0 H RDW Coeff of Caleb 15.8 H Plt Count 220 MPV 10.4 Medications Administered Current Medications Acetaminophen (Tylenol) 650 mg PO Q6H PRN PRN Reason: Pain/HARVEY/Fever Stop: 04/20/19 06:13 Last Admin: 03/21/19 21:27 Dose: 650 mg Documented by: Benzocaine (Dermoplast Pain Relieving [place]) 1 appln EXT PRN PRN PRN Reason: Perineal Discomfort Stop: 04/20/19 06:13 Last Admin: 03/21/19 06:32 Dose: 1 appln Documented by: Bisacodyl (Dulcolax) 10 mg [place] DAILY PRN PRN Reason: No BM on 2nd post- day Stop: 04/20/19 06:13 Cocaine HCl (Supercream 0.870%) 1 gm EXT BID PRN PRN Reason: Hemorrhoidal Inflammation Stop: 04/04/19 06:13 Docusate Sodium (Colace) 100 mg PO DAILY@08,21 [facility] Stop: 04/20/19 07:59 Last Admin: 03/22/19 20:07 Dose: 100 mg Documented by: Hydrocortisone (Anusol Hc) 25 mg [place] BID PRN PRN Reason: Hemorrhoidal Inflammation Stop: 04/20/19 06:13 Oxytocin (Pitocin) 30 units in 500 mls @ 333.333 mls/hr IV .Q1H30M PRN; Protocol PRN Reason: Bleeding Control Stop: 04/20/19 06:13 Ibuprofen (Motrin) 600 mg PO Q4H PRN PRN Reason: Pain/HARVEY/Cramping/Fever Stop: 04/20/19 06:13 Last Admin: 03/22/19 20:09 Dose: 600 mg Documented by: Oxycodone/Acetaminophen (Percocet 5mg/325mg) 1 tab PO Q4H PRN PRN Reason: Pain not relieved by... Stop: 04/04/19 06:13 Prenat Multivit/Regional Business Development Manager/Iron/Folic Ac ( Vitamin) 1 tab PO DAILY@08 [facility] Stop: 04/20/19 07:59 Last Admin: 03/22/19 08:20 Dose: 1 tab Documented by: <Jeanette Osuna MD, FACOG - Last Filed: 03/23/19 07:13> Co-Signing Physician Notes Resident Physician Supervision Note: I interviewed and examined the patient. Discussed with Dr. Mills and agree with findings and plan as documented in the note. Any exceptions or clarifications are listed here: [None] Documented By: Jeanette Osuna MD, FACOG Resident Activity Tracking <Lyn Mills DO - Last Filed: 03/23/19 06:50> Resident Involvement: Resident Care Provided Care Provided: Adult Hospital Medicine
[2019-03-23 07:20] LABS: Hematocrit (blood only) 30.5 % (37-47)
[2019-03-23] MEDS: DOCUSATE SODIUM 100 MG CAP PO SCH (08:33)
[2019-03-23] MEDS: PRENATAL VITAMIN 1 TAB PO SCH (08:34)
[2019-03-23] MEDS: IBUPROFEN 600 MG TAB PO PRN (08:34)
== END 2019-03-23 17:22 | disposition home or self-care (01) | DRG 806 ==
LOC: OPB 02:54 → 4S1 02:56 → 4S2 03-21 05:49

== ENCOUNTER 2021-03-17 07:33 | Inpatient (IN) ==
[2021-03-17] MEDS ORDERED: OXYTOCIN 30 UNITS/500 ML BAG IV PRN ×2 (07:57→07:59)
[2021-03-17 08:15] LABS: Hematocrit (blood only) 36.4 % (37-47); Hemoglobin 11.5 g/dL (12.0-16.0); Mean Corpuscular Hemoglobin 27.4 pg (25-34); Mean Corpuscular Hgb Conc 31.6 g/dL (32-36); Mean Corpuscular Volume 86.9 fL (80-100); Mean Platelet Volume 10.3 fL (7.4-10.4); Platelet Count 301 K/uL (130-400); RDW Standard Deviation 46.8 fL (36.4-46.3); Red Blood Count 4.19 M/uL (4.2-5.4); White Blood Count 10.31 K/uL (4.8-10.8)
[2021-03-17 08:50] LABS: Creatinine Clr Calc Pharmacy 186.9 ml/min; Est GFR (Non-African American) 123.4 ml/min
[2021-03-17] MEDS: LACTATED RINGER'S 1,000 ML IV PRN ×4 (09:06→23:53)
--- NOTE | 2021-03-17 13:36 | Labor Progress Brief Note ---
Date of Service March 17, 2021 Subjective starting to feel ctx Assessment & Plan (1) : Plan: 25 y/o at 40 wga admitted for elective IOL VSS Fetus cat 1 Labor - continue pit titration, consider arom with next check if further along GBS neg Epidural PRN Admission and Anticipated Discharge Date Admission Date: March 17, 2021 Physical Exam Genitourinary: Manual OB Exam: + cervical dilation (2), + cervical effacement 50% and + station -2 OB Exam Monitor Tracing: + external FHT monitor used, + external uterine monitor used (q4-6) and + category I (125/mod/+accel/-decel) Results & Data ([facility]) Vital Signs (Past 12 Hours) Vital Signs Temp Pulse Resp BP 03/17/21 13:30 82 139/67 03/17/21 11:57 98.4 F 77 20 126/74 03/17/21 09:23 90 131/91 03/17/21 08:09 98.4 F 20 03/17/21 07:49 81 144/83 H 03/17/21 07:44 98.4 F 89 20 178/92 H Coding Level of Care Code None Diagnoses Z34.90
[2021-03-17] MEDS ORDERED: CALCIUM CARBONATE 500 MG CHEWABLE TAB PO PRN (17:55)
--- NOTE | 2021-03-17 18:22 | Labor Progress Brief Note ---
Date of Service March 17, 2021 Subjective Reason For Note: Routine Evaluation Assessment & Plan (1) Supervision of normal intrauterine in multigravida: Plan: Genoveva is a 25-year-old at 40 weeks 0 days gestational age. Elective induction of labor. 1. Fetus: Cat 1 2. Labor: Progressing, AROM clr. 3. Vitals: Occasional mild range BPs. PIH labs normal, Denies PIH symptoms (2) Encounter for induction of labor: Admission and Anticipated Discharge Date Admission Date: March 17, 2021 Physical Exam Genitourinary: OB Exam Abdomen: + vertex Manual OB Exam: + cervical dilation 3 cm, + cervical effacement 50%, + station -2 and + amniotic fluid clear OB Exam Monitor Tracing: + external FHT monitor used, + external uterine monitor used, + category I and + normal FHT variability; no early decelerations present, no late decelerations present and no variable decelerations Results & Data ([facility]) Vital Signs (Past 12 Hours) Vital Signs Temp Pulse Resp BP 03/17/21 17:52 36.6 C 81 20 132/80 03/17/21 15:59 86 140/74 03/17/21 14:48 36.6 C 72 20 147/95 H 03/17/21 14:21 36.9 C 93 H 20 132/82 03/17/21 13:30 82 139/67 03/17/21 11:57 36.9 C 77 20 126/74 03/17/21 09:23 90 131/91 03/17/21 08:09 36.9 C 20 03/17/21 07:49 81 144/83 H 03/17/21 07:44 36.9 C 89 20 178/92 H Coding Level of Care Code None Diagnoses Supervision of normal intrauterine in multigravida Z34.80 Encounter for induction of labor Z34.90
[2021-03-17] MEDS ORDERED: BUPIVACAINE 0.25% 30 ML VIAL ONE ×2 (19:03→21:28)
[2021-03-17] MEDS ORDERED: fentaNYL citrate 100 MCG/2 ML VIAL ONE (19:03)
[2021-03-17] MEDS ORDERED: SODIUM CHLORIDE 0.9% INJ 10 ML VIAL ONE ×2 (19:03→21:28)
[2021-03-17] MEDS ORDERED: ePHEDrine sulfate 50 MG/ML AMP ONE (19:03)
[2021-03-17] MEDS ORDERED: fentaNYL 2MCG/ML ROPIVACAINE 1.25MG/ML 100 ML BAG EPI ONE (19:04)
[2021-03-17] MEDS ORDERED: fentaNYL 2MCG/ML ROPIVACAINE 1.25MG/ML 100 ML BAG EPI PRN ×2 (19:23→21:29)
[2021-03-17] MEDS ORDERED: diphenhydrAMINE 50 MG/ML VIAL IV PRN (19:23)
[2021-03-17] MEDS ORDERED: NALBUPHINE HCL INJ 10 MG/ML AMP IV PRN (19:23)
[2021-03-17] MEDS ORDERED: NALOXONE HCL 0.4 MG/1 ML VIAL/CARP IV PRN (19:23)
[2021-03-17] MEDS ORDERED: ePHEDrine sulfate 50 MG/ML AMP IV PRN (19:23)
[2021-03-17] MEDS ORDERED: NALOXONE HCL 1 MG in SODIUM CHLORIDE 0.9% 1000ML 1,000 ML IV PRN (19:23)
[2021-03-17] MEDS ORDERED: ONDANSETRON INJ 2 MG/ML 2 ML VIAL IV PRN (19:23)
--- NOTE | 2021-03-17 19:27 | Anesthesiology Consultation ---
Date of Service March 17, 2021 Assessment & Plan Chart Review Chart Review: Patient NOT seen in Pre Admission Testing and Acceptable Risk for Labor Epidural Consults Requested none ASA ASA3 Proposed Anesthesia Anesthesia Type: Labor Epidural and CSE Risk / Benefits Reviewed With: PT / POA / Parent / Guardian, Accepts Plan and Informed Consent Obtained History Height/Weight Height: 5 ft 6 in Weight: 134.717 kg Allergies Allergy/AdvReac Type Severity Reaction Status Date / Time nickel Allergy Mild Rash Verified 03/17/21 09:38 Medications Home Medications Medication Instructions Recorded Confirmed Last Taken prenat.vits,nathalia,muu-zxwo-msott 1 tab PO DAILY 03/17/21 03/17/21 03/17/21 07:00 Active Medications Generic Name Dose Route Start Last Admin Trade Name Freq PRN Reason Stop Dose Admin Calcium Carbonate 1,500 mg 03/17/21 17:55 03/17/21 18:10 Calcium Carbonate 500 Mg Chewable Tab PO 04/16/21 17:54 1,500 mg BID PRN Administration Indigestion Lactated Ringer's 1,000 mls @ 125 mls/hr 03/17/21 07:57 03/17/21 18:53 Lr IV 03/19/21 07:56 125 mls/hr .Q8H PRN Infusion L&D Protocol Protocol Oxytocin 30 units in 500 mls @ 20 mls/hr 03/17/21 07:59 03/17/21 18:53 Pitocin IV 03/19/21 07:58 1.2 units/hr .Q24H PRN 20 mls/hr Labor Induction/Augmentation Titration Protocol 1.2 UNITS/HR NPO Date Last Intake of Fluids: 03/17/21 Time Last Intake of Fluids: 18:00 Date Last Intake of Solids: 03/17/21 Time Last Intake of Solids: 17:00 Past Medical History Medical History (Updated 03/17/21 @ 18:20 by Robert Mcmullen MD) H/O urinary tract infection Morbid obesity Exercise / Class Metabolic Activity II 4-5 Yardwork/Stairs/Walk up hill Past Family History Family History Grandmother (Maternal) Hypertension Other Breast cancer Past Surgical History Surgical History H/O oral surgery Status post cholecystectomy Past Anesthesia History No Hx of Anesthesia Complications and No Family Hx of Anesthesia Complications History of PONV No Hx of PONV and No Hx of Motion Sickness Social History Smoking Status: Never smoker Hx Alcohol Use: No Hx Substance Use: No substance use type: does not use Review of Systems no chest pain or sob Physical Exam Vital Signs Last Vital Signs Temp 36.7 C 03/17/21 18:56 Pulse 82 03/17/21 19:20 Resp 18 03/17/21 18:56 BP 137/84 03/17/21 18:56 Pulse Ox 99 03/17/21 19:20 Constitutional + morbidly obese ENMT Mouth: no TMJ abnormality Thyromental Distance: > or= 3.5 Finger Breadths Mallampati Class: II Neck normal visual inspection Respiratory normal respiratory effort Auscultation: lungs clear to auscultation bilaterally Cardiovascular Rate/Rhythm: regular rate and regular rhythm Musculoskeletal Spine: normal cervical ROM Neurologic moves all extremities Psychiatric Orientation: alert and oriented x 3 Testing Laboratory Results 03/17/21 08:04 03/17/21 08:25 Blood Type O Positive 03/17/21 08:04 Antibody Screen NEGATIVE 03/17/21 08:04
[2021-03-17] MEDS ORDERED: NURSING L&D Epidural Breakthrough Pain Update ONE (21:03)
[2021-03-18] MEDS ORDERED: SUPERCREAM 0.870% 15 GM JAR EXT PRN (01:19)
[2021-03-18] MEDS ORDERED: DIPHTHERIA/TETANUS/PERTUSSIS 0.5 ML SYR/VIAL IM ONE (01:19)
[2021-03-18] MEDS ORDERED: IBUPROFEN 600 MG TAB PO PRN (01:19)
[2021-03-18] MEDS ORDERED: OXYTOCIN 30 UNITS/500 ML BAG IV PRN (01:19)
[2021-03-18] MEDS ORDERED: miSOPROStoL 200 MCG TAB PR ONE (01:19)
[2021-03-18] MEDS ORDERED: HYDROCORTISONE ACETATE 25 MG SUPP PR PRN (01:19)
[2021-03-18] MEDS ORDERED: bisacodyL 10 MG SUPP PR PRN (01:19)
[2021-03-18] MEDS ORDERED: BENZOCAINE 20% AER SPR 82.5 GM CAN EXT PRN (01:19)
[2021-03-18] MEDS: PRENATAL VITAMIN 1 TAB PO SCH (08:08)
[2021-03-18] MEDS: DOCUSATE SODIUM 100 MG CAP PO SCH ×2 (08:08→20:38)
[2021-03-18] MEDS: FERROUS SULFATE 325 MG TAB PO SCH (08:08)
--- NOTE | 2021-03-18 09:19 | Anesthesia Procedure Note ---
Date of Service March 18, 2021 Anesthesia Post Epidural Note Vital Signs Vital Signs: Temp Pulse Resp BP Pulse Ox 36.4 C L 78 20 128/76 100 03/18/21 03:45 03/18/21 03:45 03/18/21 03:45 03/18/21 03:45 03/18/21 01:20 Pain Intensity Bilateral Lower Abdomen: Pain Intensity: 10 Notes Mental Status: alert / awake / arousable Nausea / Vomiting: adequately controlled Pain: adequately controlled Airway Patency, RR, SpO2: stable & adequate BP & HR: stable & adequate Hydration State: stable & adequate Neuraxial Anesthesia: was administered and sensory block is resolving Anesthetic Complications: no major complications apparent and Pt Satisfied with anesthetic care Epidural: Removed without complications and With tip intact
--- NOTE | 2021-03-18 10:21 | Delivery Summary ---
DATE OF PROCEDURE: 03/18/2021. PROCEDURE: Normal spontaneous vaginal delivery. SURGEON: Robert Mcmullen MD PREOPERATIVE DIAGNOSES: 1. Single intrauterine at 40 weeks 1 day gestational age. 2. Elective induction of labor. 3. BMI greater than 45. POSTOPERATIVE DIAGNOSES: 1. Single intrauterine at 40 weeks 1 day gestational age. 2. Elective induction of labor. 3. BMI greater than 45. 4. Status post delivery. ESTIMATED BLOOD LOSS: 300 mL. DRAINS: 100 mL at the end via straight cath. COMPLICATIONS: None. FINDINGS: Viable with weight and Apgars pending. DESCRIPTION OF PROCEDURE: Upon entering the room, the head of the was noted to be out with t he remaining body still inside the vagina and uterus. I was quickly gloved and delivered the shoulde rs followed by the body without issue. The was noted to have no cry response upon delivery w ith only moderate tone and the decision was to double clamp and cut the cord. After stimulation, we did not achieve improved response from the . was then taken over to the waiting nurse ry staff for further evaluation. Cord blood was then obtained. Attention then was turned to deliver y of the placenta. The patient was then prepped and draped in the normal delivery fashion and attenti on was turned to delivery of the placenta, which was delivered intact with 3-vessel cord, gentle cord traction. On inspection of the perineum, vagina, cervix, there were noted to be no lacerations. An 800 mcg of Cytotec were placed per rectum. The was noted to become vigorous soon after bein g taken to the waiting nursery staff and Apgars were noted to be 6 and 9 at one and five minutes resp ectively. Sponge and instrument counts were correct at the completion of the case. Both mother and were stable in the immediate post-delivery period. Job ID: [id number]
[2021-03-18] MEDS ORDERED: Nursing to Pharmacy Communication SCH (11:45)
[2021-03-18] MEDS: ACETAMINOPHEN 325 MG TAB PO PRN (13:47)
--- NOTE | 2021-03-19 06:29 | Obstetrical Progress Note ---
Date of Service March 19, 2021 Assessment & Plan (1) Encounter for care and examination after delivery: Plan: 25yo PPD 1 s/p at 40 weeks -Continue routine care -Vitals reviewed- HDS, afebrile -GBS negative -Encourage ambulation, regular diet -Pain control with ibuprofen, acetaminophen PRN -Encourage -Hgb 12.1, stable -discharge likely today, f/u in 6 weeks with OB Admission and Anticipated Discharge Date Admission Date: March 17, 2021 Supervising Physician Co-Signing Physician Notes Resident Physician Supervision Note: I interviewed and examined the patient. Discussed with Dr. Leiva and agree with findings and plan as documented in the note. Any exceptions or clarifications are listed here: [ ] Documented By: Esther Castillo MD, FACOG Subjective PPD 1 s/p . Patient seen and examined at bedside. Reports no acute overnight events. Ambulating and voiding. Passing gas and stool. Regular diet w/o N/V. Lochia moderate. Breast Feeding. Pain 0/10. Review of Systems Review of Systems: Denies fevers/chills. Denies dyspnea, cough. Denies chest pain. Mild breast pain, no discharge. Denies dysuria. Denies headache. Denies back pain. Physical Exam Physical Exam: General: Alert, oriented, no acute distress Cardiac: Regular rate and rhythm, normal S1, S2. No murmurs appreciated. Respiratory: Clear to auscultation b/l with good air flow entry, symmetric chest rise and fall. No wheezes or crackles. No increased work of breathing or accessory muscle use Abdomen: Soft, nontender, nondistended. Fundus firm and palpable at 1 cm below umbilicus. No guarding or rebound. Skin: No rashes or lesions Extremities: Warm, dry, well-perfused with capillary refill <2s b/l. No lower extremity edema, erythema or swelling. Negative Jesenia's sign b/l. Results & Data ([facility]) Vital Signs (Past 12 Hours) Vital Signs Temp Pulse Resp BP Pulse Ox 03/18/21 23:00 36.6 C 76 16 139/83 98 03/18/21 19:50 36.7 C 77 16 138/84 98 Resident Activity Tracking Resident Involvement: Resident Care Provided Care Provided: OB Delivery
[2021-03-19 06:40] LABS: Hematocrit (blood only) 38.2 % (37-47); Hemoglobin 12.1 g/dL (12.0-16.0)
[2021-03-19] MEDS: PRENATAL VITAMIN 1 TAB PO SCH (07:32)
[2021-03-19] MEDS: FERROUS SULFATE 325 MG TAB PO SCH (07:32)
[2021-03-19] MEDS: DOCUSATE SODIUM 100 MG CAP PO SCH (07:32)
[2021-03-19] MEDS: ACETAMINOPHEN 325 MG TAB PO PRN (07:32)
[2021-03-19] MEDS ORDERED: bisacodyL 5 MG TABEC PO SCH (20:00)
--- NOTE | 2021-03-24 13:15 | Coding Query ---
CODING QUERY To promote full compliance with coding requirements relating to patient care, provider participation is requested in all cases of janitorial maintenance worker uncertainty. Please assist us with the question(s) below: Coding Question(s): Please document reason for induction of labor. Physician's Response(s): Elective IOL Thank you Sofya Amador Principal Diagnosis: "that condition established after study, to be chiefly responsible for occasioning the admission of the patient to the hospital for care." Co-Existing Principal Diagnosis: "when two or more diagnoses equally meet the criteria for principal diagnosis as determined by the circumstances of admission, diagnostic work up, and/or therapy provided, and the Alphabetic Index, Tabular List, or another coding guideline does not provide sequencing direction, any one of the diagnoses may be sequenced first." "When the physician has documented what appears to be a current diagnosis in the body of the record, but has not included the diagnosis in the final diagnostic statement, the physician should be asked whether the diagnosis should be added." (Source [facility]oding [facility] 2 QTR90. p3-4) D[place]OT[place]
== END 2021-03-19 10:25 | disposition home or self-care (01) | DRG 806 ==
LOC: 4S1 07:33 → 4S2 03-18 03:51